=== PATIENT | male | born 1955 | race Caucasian/White ===

== ENCOUNTER → 2018-03-22 | Outpatient (CLI) | payer OTHER ==
[~2018-03-22] MED LIST: DIGO0.2518 PO; LISI40TA PO; MULT-506 PO; PROP80CA29 PO; WARF5TAB7 PO
[2018-03-22 10:44] LABS: BASO % 0.7 %; BASO ABS # 0.03 K/uL (0-0.2); EOS % 4.9 %; EOS ABS # 0.21 K/uL (0-0.5); HEMATOCRIT 44.7 % (42-52); HEMOGLOBIN 15.7 g/dL (14.0-18.0); IG# 0.01 K/uL (0.00-0.02); LYMPH % 22.9 %; LYMPH ABS # 0.99 K/uL (1.2-3.4); MEAN CELL VOLUME 93.3 fL (80-100); MEAN CORPUSCULAR HEMOGLOBIN 32.8 pg (25-34); MEAN CORPUSCULAR HGB CONC 35.1 g/dl (32-36); MEAN PLATELET VOLUME 12.2 fL (7.4-10.4); MONO % 8.8 %; MONO ABS # 0.38 K/uL (0.11-0.59); NEUT % 62.5 %; PLATELET COUNT 135 K/uL (130-400); RED CELL DISTRIBUTION WIDTH CV 13.2 % (11.5-14.5); RED CELL DISTRIBUTION WIDTH SD 45.2 fL (36.4-46.3); WHITE BLOOD COUNT 4.32 K/uL (4.8-10.8)
[2018-03-22 11:04] LABS: HEMOGLOBIN A1C 5.1 % (4.5-5.6)
[2018-03-22 14:25] LABS: ALBUMIN 3.8 gm/dl (3.4-5.0); ALT/SGPT 28 U/L (12-78); AST/SGOT 15 U/L (15-37); BLOOD UREA NITROGEN 23 mg/dl (7-18); CARBON DIOXIDE 26 mmol/L (21-32); CREATININE 1.04 mg/dl (0.60-1.40); GLUCOSE 107 mg/dl (70-99); POTASSIUM 4.7 mmol/L (3.5-5.1); SODIUM 136 mmol/L (136-145)
[2018-03-22 14:34] LABS: ALKALINE PHOSPHATASE 53 U/L (45-117); CHOLESTEROL 194 mg/dl (0-200); LDL CHOLESTEROL CALCULATED 116 mg/dl
== END | disposition home or self-care (01) ==
LOC: C.LABBC 09:11
PROVIDERS: ATTEND Nurse Practitioner Family
DX: Z13.220 Encounter for screening for lipoid disorders (principal); I48.91 Unspecified atrial fibrillation; I10 Essential (primary) hypertension; R73.9 Hyperglycemia, unspecified

== ENCOUNTER 2018-07-10 10:57 | Emergency (ER) | payer BC ==
[~2018-07-10] VITALS: Ht 188 cm; Wt 112.5 kg
[2018-07-10 11:08] VITALS: Ht 188 cm; Wt 112.5 kg
[2018-07-10] MEDS ORDERED: SODIUM CHLORIDE 0.9% 1000ML 1,000 ML IV STA (11:59)
[2018-07-10 12:23] VITALS: O2SAT 97
--- NOTE | 2018-07-10 12:26 | EMERGENCY ROOM VISIT NOTE ---
History First contact with patient: 11:51 Chief Complaint: URINARY SYMPTOMS Stated Complaint: BLOOD IN URINE, ABD PAIN Nursing Triage Summary: Pt. arrives with c/o having blood in his urine on and off for the past 4 days. History of Present Illness The patient is a 62 year old male who presents to the Emergency Room via private vehicle with complaints of "blood in urine, abdominal pain". The patient notes that he has been having blood in the urine off and on for the past 4 days. He states that this morning he urinated it was fine however now he is peeing bright red blood that is now preventing him from being able to urinate he notes. He states that he has no pain currently but feels as though he may be getting some discomfort in the bladder region secondary to it filling and not being able to void. He notes he is on Xarelto for A. fib. No recent trauma or injury. No smoking history. Review of Systems A complete 10-point Review of Systems was discussed with the patient, with pertinent positives and negatives listed in the History of Present Illness. All remaining Review of Systems questions can be considered negative unless otherwise specified. Past Medical/Surgical History A. fib Family History No pertinent Social History Smoking Status: Never Smoker Patient is employed and lives locally. Current/Historical Medications Scheduled Amlodipine (Norvasc), 5 MG PO DAILY Digoxin (Digoxin), 1 TAB PO DAILY Lisinopril (Prinivil), 40 MG PO BID Multivitamin (Multivitamin), 1 TAB PO DAILY Propranolol Hcl (Inderal La), 160 MG PO DAILY Rivaroxaban (Xarelto), 20 MG PO DAILY Sulfa/Trimethoprim (Bactrim Ds 800MG/160MG), 1 TAB PO BID Physical Exam Vital Signs Date Time Temp Pulse Resp B/P (MAP) Pulse Ox O2 Delivery O2 Flow Rate FiO2 07/10/18 17:15 61 18 199/106 98 07/10/18 17:06 59 16 98 07/10/18 17:01 199/106 07/10/18 16:51 60 12 98 07/10/18 16:46 196/99 07/10/18 16:36 60 13 98 07/10/18 16:31 196/100 07/10/18 16:27 61 16 98 07/10/18 16:16 180/91 07/10/18 16:12 64 21 98 07/10/18 16:10 189/89 8/13/18 16:03 197/96 07/10/18 15:56 190/109 07/10/18 15:27 63 98 07/10/18 15:26 65 18 205/109 98 07/10/18 15:26 205/109 07/10/18 14:51 191/99 07/10/18 14:51 65 18 191/99 98 Room Air 07/10/18 13:15 36.7 70 18 189/95 98 Room Air 07/10/18 12:25 66 07/10/18 12:23 97 Room Air 07/10/18 11:08 36.7 68 18 224/124 97 Room Air Physical Exam VITAL SIGNS - Vital signs and nursing notes were reviewed. Hypertensive. GENERAL -62-year-old male appearing his stated age who is in no acute distress. Communicates well with provider and answers questions appropriately. SKIN - Without rashes. No meningeal or petechial rash. HEAD - NC/AT. EYES - Sclera anicteric. EARS - No deformities of external structures noted on gross examination bilaterally. NOSE - Midline and without cyanosis. No epistaxis or purulent drainage noted. MOUTH/OROPHARYNX - Without perioral cyanosis. LUNGS - Chest wall symmetric without accessory muscle use, intercostals retractions, or central cyanosis. Normal vesicular breath sounds CTA B/L. No wheezes, rales, or rhonchi appreciated. CARDIAC - RRR with S1/S2. No murmur, rubs, or gallops appreciated. ABDOMEN - Abdominal contour normal without pulsations or visible masses. BS normoactive all four quadrants. No tenderness, palpable masses, hepatosplenomegaly, or ascites noted. EXTREMITIES - No clubbing or peripheral cyanosis. No pretibial edema present. +5 /5 strength noted in UE/LE bilaterally. NEUROLOGIC - Cranial nerves II through XII grossly intact. PSYCH - A&O, and cooperates fully with examiner. Pt is very pleasant and interacts well with examiner. Medical Decision & Procedures ER Provider Diagnostic Interpretation: ABD/PELVIS IV CONTRAST ONLY CLINICAL HISTORY: 62 years-old Male presenting with Hematuria, On xarelto. TECHNIQUE: Multidetector CT of the abdomen and pelvis was performed after the administration of intravenous contrast. IV contrast: 93 mL of Optiray 320. A dose lowering technique was used consistent with the principles of ALARA (as low as reasonably achievable). COMPARISON: None. CT DOSE (mGy.cm): The estimated cumulative dose is 981.81 mGy.cm. FINDINGS: Factory Hand topogram: Unremarkable. Lung bases: Minimal basilar opacities, likely atelectasis. Normal heart size. No pericardial or pleural effusion. Liver: Multilobular contour of the liver, nonspecific. No focal lesion. Patent hepatic vasculature. Biliary: No intrahepatic or extrahepatic biliary ductal dilatation. Normal gallbladder. Pancreas: Normal. Spleen: Normal. Adrenal glands: Normal. Kidneys and ureters: Heterogeneously enhancing mass arising from the interpolar region to lower pole of the left kidney measuring 7.7 x 7.3 x 8.1 cm. Expansion of the urinary collecting system, which is filled with enhancing material. The right ureter is mildly distended with hyperdense material along nearly its full length. The upper pole calyces of the left kidney are mildly dilated. There is no gross evidence of extension of tumor into the renal vein. Multiple prominent perinephric varices are evident. There is infiltration of left perinephric fat without gross evidence of nodular soft tissue extension through Gerota fascia. The right kidney is normal. No nephrolithiasis. Bladder: Allowing for under distention of the urinary bladder, there is still significant circumferential wall thickening. Perivesicular fat stranding evident. Pelvic organs: Prostate enlargement likely secondary to benign prostatic hyperplasia. Bowel: Normal appendix. No bowel obstruction. Peritoneal cavity: No free fluid or intraperitoneal gas. Lymph nodes: No enlarged lymph nodes in the abdomen or pelvis. Vasculature: Aorta and IVC patent and normal in caliber. Abdominal wall: Varicoceles suggested bilaterally. Musculoskeletal: Degenerative changes of the spine. IMPRESSION: 1. 8 cm mass arising from the left kidney highly suspicious for renal cell carcinoma. Urologic consultation is necessary for excision. The mass appears to extend into the urinary collecting system and results in upper pole obstruction. No lymphadenopathy or gross evidence of vascular invasion. However, the presence of bilateral varicoceles suggest some element of venous obstruction. 2. Circumferential bladder wall thickening. This is indeterminate and may be due to a benign cause such as chronic bladder outlet obstruction or cystitis. Correlate with urinalysis. Again urologic consultation recommended. The report will be called/faxed according to standard departmental protocol. Electronically signed by: Humberto Delgado M.D. 07/10/2018 2:24 PM Dictated Date/Time: 07/10/2018 2:08 PM Laboratory Results 07/10/18 12:20 Red Blood Count 4.44, Mean Corpuscular Volume 92.1, Mean Corpuscular Hemoglobin 30.9, Mean Corpuscular Hemoglobin Concent 33.5, Mean Platelet Volume 11.8, Neutrophils (%) (Auto) 74.8, Lymphocytes (%) (Auto) 14.6, Monocytes (%) (Auto) 6.0, Eosinophils (%) (Auto) 3.3, Basophils (%) (Auto) 0.8, Neutrophils # (Auto) 4.49, Lymphocytes # (Auto) 0.88, Monocytes # (Auto) 0.36, Eosinophils # (Auto) 0.20, Basophils # (Auto) 0.05 07/10/18 12:20 Test 07/10/18 12:05 07/10/18 12:20 Urine Color RED Urine Appearance TURBID (CLEAR) Urine pH 7.0 (4.5-7.5) Urine Specific Dorr 1.020 (1.000-1.030) Urine Protein 3+ (NEG) Urine Glucose (UA) TRACE (NEG) Urine Ketones TRACE (NEG) Urine Occult Blood 3+ (NEG) Urine Nitrite POS (NEG) Urine Bilirubin NEG (NEG) Urine Urobilinogen NEG (NEG) Urine Leukocyte Esterase TRACE (NEG) Urine RBC >30 /hpf (0-4) Urine WBC 1-5 /hpf (0-5) Urine Epithelial Cells 0-5 /lpf (0-5) Urine Bacteria NEG (NEG) White Blood Count 6.01 K/uL (4.8-10.8) Red Blood Count 4.44 M/uL (4.7-6.1) Hemoglobin 13.7 g/dL (14.0-18.0) Hematocrit 40.9 % (42-52) Mean Corpuscular Volume 92.1 fL (80-100) Mean Corpuscular Hemoglobin 30.9 pg (25-34) Mean Corpuscular Hemoglobin Concent 33.5 g/dl (32-36) Platelet Count 185 K/uL (130-400) Mean Platelet Volume 11.8 fL (7.4-10.4) Neutrophils (%) (Auto) 74.8 % Lymphocytes (%) (Auto) 14.6 % Monocytes (%) (Auto) 6.0 % Eosinophils (%) (Auto) 3.3 % Basophils (%) (Auto) 0.8 % Neutrophils # (Auto) 4.49 K/uL (1.4-6.5) Lymphocytes # (Auto) 0.88 K/uL (1.2-3.4) Monocytes # (Auto) 0.36 K/uL (0.11-0.59) Eosinophils # (Auto) 0.20 K/uL (0-0.5) Basophils # (Auto) 0.05 K/uL (0-0.2) RDW Standard Deviation 41.7 fL (36.4-46.3) RDW Coefficient of Variation 12.5 % (11.5-14.5) Immature Granulocyte % (Auto) 0.5 % Immature Granulocyte # (Auto) 0.03 K/uL (0.00-0.02) Prothrombin Time 13.1 SECONDS (9.0-12.0) Prothromb Time International Ratio 1.3 (0.9-1.1) Activated Partial Thromboplast Time 28.8 SECONDS (21.0-31.0) Partial Thromboplastin Ratio 1.1 Anion Gap 6.0 mmol/L (3-11) Est Creatinine Clear Calc Drug Dose 82.8 ml/min Estimated GFR () 71.6 Estimated GFR (Non- 61.8 BUN/Creatinine Ratio 16.2 (10-20) Calcium Level 9.4 mg/dl (8.5-10.1) Total Bilirubin 0.6 mg/dl (0.2-1) Aspartate Amino Transf (AST/SGOT) 17 U/L (15-37) Alanine Aminotransferase (ALT/SGPT) 26 U/L (12-78) Alkaline Phosphatase 69 U/L (45-117) Total Protein 7.8 gm/dl (6.4-8.2) Albumin 3.9 gm/dl (3.4-5.0) Globulin 3.9 gm/dl (2.5-4.0) Albumin/Globulin Ratio 1.0 (0.9-2) Medications Administered Medications (Trade) Dose Ordered Sig/Alexandra Route Start Time Stop Time Status Last Admin Dose Admin Sodium Chloride 1,000 ml @ 999 mls/hr Q1H1M STAT IV 07/10/18 11:59 07/10/18 12:59 DC 07/10/18 11:59 999 MLS/HR Ceftriaxone Sodium (Rocephin Inj) 1 gm NOW STAT IV 07/10/18 14:35 07/10/18 14:36 DC 07/10/18 14:46 1 GM Labetalol HCl (Normodyne IV) 10 mg NOW STAT IV 07/10/18 15:42 07/10/18 15:43 DC 07/10/18 16:11 10 MG Medical Decision Patient was seen and evaluated as above in room C5. Review was performed of nursing notes and vital signs. After obtaining a thorough history and physical examination the above work up was performed. He presents to us today with essentially painless hematuria. He does not smoke. Urinalysis reveals nitrites and there is concern for potential UTI. Given the patient's presentation I did want to further evaluate for other underlying etiologies. CT scan of the abdomen and pelvis were obtained. There is unfortunately an 8 cm mass in the left this was discussed with the patient, and subsequently the on -call urologist, Dr. Red. We discussed the case. She does not perform nephrectomies of which the patient will likely require, therefore recommended either follow-up at [facility] or with not in any urology with an individual who performs nephrectomies. I discussed this with the patient and he would prefer to stay here in [place] therefore I did consult the on- call [place] urologist. I spoke with Nieves Posada, nurse practitioner. We discussed the case. She was able to secure an appointment for the patient this coming Tuesday. Patient was informed upon this. He will follow-up with Dr. Yung on Tuesday at 9:10 AM. Patient notes he will certainly keep this appointment. I answered his questions. He was given fluids here. Initially he had a little trouble voiding but then with hydration he was able to have full voids. He notes no difficulty after being hydrated. Bladder scan does not show concern for retention. No leukocytosis or concerning anemia. I do not believe that he has emergent hemorrhaging. Unfortunately, the patient also does have hypertension presenting here to the emergency department. He has no chest pain or shortness of breath. No evidence of CVA. He has a history of hypertension and takes his medications as prescribed. His repeat values were systolically above 200. I believe that this should be treated. He was in agreement, and was given 10 mg of labetalol after discussing this with the attending physician. He was reevaluated and the level had dropped into the systolic 190s. I do not want to drop him too much as this certainly could be more of a chronic value. I did discuss this with the on-call wood cutter, Dr. Huerta. He was able to review the patient's blood pressures at the family doctor's office. He recommended adding amlodipine 5 mg daily. In talking with the attending physician we will also add Bactrim for treating potential UTI in this male. The patient was educated upon management, educated upon todays findings/results, educated upon symptoms in which to return, had questions answered prior to discharge, and was discharged home in good condition. Case was discussed with the attending physician. In the evaluation and treatment of this patient the following differential diagnoses were entertained: UTI, hemorrhagic cystitis, mass, urethritis, among others. Impression Primary Impression: Renal mass Additional Impression: Symptoms of urinary tract infection Departure Information Dispostion Home / Self-Care Condition GOOD Prescriptions Amlodipine (Norvasc) 5 Mg Tab 5 MG PO DAILY for 30 Days, #30 TAB Prov: Scott Ventura PA-C 07/10/18 Sulfa/Trimethoprim (Bactrim Ds 800MG/160MG) Tab 1 TAB PO BID for 5 Days, #10 TAB Prov: Scott Ventura PA-C 07/10/18 Referrals Mauricio Zapata III, CRNP (PCP) Jacky Yung M.D. Patient Instructions My [facility] Additional Instructions You have been treated in the Emergency Department for a Urinary Tract Infection (UTI) with a renal mass. Amlodipine 1 tablet which is 5 mg once daily. This to help lower your blood pressure. If you feel lightheaded on this likely or like you are going to pass out please discontinue and return immediately. Bactrim 1 tablet every 12 hours for 5 days. This is for the urinary tract infection. You have an upcoming appointment scheduled with Dr. Yung 07/12/18 at 0910. PLEASE KEEP THIS APPOINTMENT You have been prescribed Bactrim to be taken every 12 hours. This is an antibiotic. All antibiotics have the potential to cause diarrhea. Stop this medication and contact a medical provider if you were to develop any significant adverse side effects including: wheezing, shortness of breath, passing out, vomiting, or a diffuse rash. Always take antibiotics as directed and COMPLETE the ENTIRE course regardless of the improvement of your symptoms. Please keep your appointment with urology as scheduled.Please follow-up regarding elevated blood pressure. For pain control, you can use the following [id number] medicines (if >12 yo): - Regular strength (325mg/tab) Tylenol (acetaminophen) 2 tabs every 4-6 hours as needed. Do not exceed 12 tablets in a 24 hour period. Avoid taking more than 3 grams (3000 mg) of Tylenol per day. This includes any other sources of acetaminophen you may take on a regular basis. Please keep appointment with urology as scheduled Return to the emergency department if your symptoms worsen despite treatment course outlined above. Drink plenty of water and stay well hydrated. As with any trip to the Emergency Department, you should follow-up with your Primary Care Provider from today's visit. Return to the emergency department if your symptoms persist despite treatment plan outlined above or if the following symptoms occur: increased fevers, chills , low back pain, nausea/vomiting, or blood in your urine. Problem Qualifiers
[2018-07-10 12:27] LABS: BASO % 0.8 %; BASO ABS # 0.05 K/uL (0-0.2); EOS % 3.3 %; HEMATOCRIT 40.9 % (42-52); HEMOGLOBIN 13.7 g/dL (14.0-18.0); IG# 0.03 K/uL (0.00-0.02); LYMPH % 14.6 %; LYMPH ABS # 0.88 K/uL (1.2-3.4); MEAN CELL VOLUME 92.1 fL (80-100); MEAN CORPUSCULAR HEMOGLOBIN 30.9 pg (25-34); MEAN CORPUSCULAR HGB CONC 33.5 g/dl (32-36); MEAN PLATELET VOLUME 11.8 fL (7.4-10.4); MONO ABS # 0.36 K/uL (0.11-0.59); NEUT % 74.8 %; NEUT ABS # 4.49 K/uL (1.4-6.5); PLATELET COUNT 185 K/uL (130-400); RED CELL DISTRIBUTION WIDTH CV 12.5 % (11.5-14.5); RED CELL DISTRIBUTION WIDTH SD 41.7 fL (36.4-46.3); WHITE BLOOD COUNT 6.01 K/uL (4.8-10.8)
[2018-07-10 12:39] LABS: INR 1.3 (0.9-1.1); PTT PATIENT 28.8 SECONDS (21.0-31.0)
[2018-07-10 13:03] LABS: ALBUMIN 3.9 gm/dl (3.4-5.0); CALCIUM 9.4 mg/dl (8.5-10.1); CREATININE 1.25 mg/dl (0.60-1.40); POTASSIUM 4.4 mmol/L (3.5-5.1); TOTAL PROTEIN 7.8 gm/dl (6.4-8.2)
[2018-07-10 13:15] VITALS: TEMP 36.7
[2018-07-10] MEDS ORDERED: [UNRECOGNIZED DRUG - CODE] PO (13:19)
[2018-07-10] MEDS ORDERED: RIVA1TAB4 PO (13:22)
[2018-07-10] MEDS ORDERED: OPTIRAY 320 IV PRN (14:15)
--- NOTE | 2018-07-10 14:25 | DIAGNOSTIC IMAGING REPORT ---
ABD/PELVIS IV CONTRAST ONLY CLINICAL HISTORY: 62 years-old Male presenting with Hematuria, On xarelto. TECHNIQUE: Multidetector CT of the abdomen and pelvis was performed after the administration of intravenous contrast. IV contrast: 93 mL of Optiray 320. A dose lowering technique was used consistent with the principles of ALARA (as low as reasonably achievable). COMPARISON: None. CT DOSE (mGy.cm): The estimated cumulative dose is 981.81 mGy.cm. FINDINGS: Process Trainer topogram: Unremarkable. Lung bases: Minimal basilar opacities, likely atelectasis. Normal heart size. No pericardial or pleural effusion. Liver: Multilobular contour of the liver, nonspecific. No focal lesion. Patent hepatic vasculature. Biliary: No intrahepatic or extrahepatic biliary ductal dilatation. Normal gallbladder. Pancreas: Normal. Spleen: Normal. Adrenal glands: Normal. Kidneys and ureters: Heterogeneously enhancing mass arising from the interpolar region to lower pole of the left kidney measuring 7.7 x 7.3 x 8.1 cm. Expansion of the urinary collecting system, which is filled with enhancing material. The right ureter is mildly distended with hyperdense material along nearly its full length. The upper pole calyces of the left kidney are mildly dilated. There is no gross evidence of extension of tumor into the renal vein. Multiple prominent perinephric varices are evident. There is infiltration of left perinephric fat without gross evidence of nodular soft tissue extension through Gerota fascia. The right kidney is normal. No nephrolithiasis. Bladder: Allowing for under distention of the urinary bladder, there is still significant circumferential wall thickening. Perivesicular fat stranding evident. Pelvic organs: Prostate enlargement likely secondary to benign prostatic hyperplasia. Bowel: Normal appendix. No bowel obstruction. Peritoneal cavity: No free fluid or intraperitoneal gas. Lymph nodes: No enlarged lymph nodes in the abdomen or pelvis. Vasculature: Aorta and IVC patent and normal in caliber. Abdominal wall: Varicoceles suggested bilaterally. Musculoskeletal: Degenerative changes of the spine. IMPRESSION: 1. 8 cm mass arising from the left kidney highly suspicious for renal cell carcinoma. Urologic consultation is necessary for excision. The mass appears to extend into the urinary collecting system and results in upper pole obstruction. No lymphadenopathy or gross evidence of vascular invasion. However, the presence of bilateral varicoceles suggest some element of venous obstruction. 2. Circumferential bladder wall thickening. This is indeterminate and may be due to a benign cause such as chronic bladder outlet obstruction or cystitis. Correlate with urinalysis. Again urologic consultation recommended. The report will be called/faxed according to standard departmental protocol. Electronically signed by: Humberto Delgado M.D. 07/10/2018 2:24 PM Dictated Date/Time: 07/10/2018 2:08 PM
[2018-07-10] MEDS ORDERED: CEFTRIAXONE SOD INJ 1 GM ADDVIAL IV STA (14:35)
[2018-07-10] MEDS ORDERED: SULF800T23 PO (15:34)
[2018-07-10] MEDS ORDERED: LABETALOL HCL IV 5 MG/ML 20ML IV STA (15:42)
[2018-07-10] MEDS ORDERED: AMLO5TAB3 PO (17:02)
[2018-07-10 17:15] VITALS: BP 199/106; PULSE 61; O2SAT 98
== END 2018-07-10 17:15 | disposition home or self-care (01) ==
LOC: C.EDB 10:58 → C.EDC 17:15
DX: N28.89 Other specified disorders of kidney and ureter (principal); R39.9 Unspecified symptoms and signs involving the genitourinary system; I10 Essential (primary) hypertension; I48.2 Chronic atrial fibrillation; Z79.01 Long term (current) use of anticoagulants; Z79.899 Other long term (current) drug therapy

== ENCOUNTER 2025-07-24 11:52 | Inpatient (IN) ==
[2025-07-24] MEDS: SODIUM CHLORIDE 0.9% 1,000 ML IV SCH ×2 (12:33→18:39)
[2025-07-24] MEDS: ONDANSETRON INJ 2 MG/ML 2 ML VIAL IV STA (12:33)
[2025-07-24 12:39] LABS: Hematocrit (blood only) 30.9 % (42.0-52.0); Hemoglobin 10.7 g/dl (14.0-18.0); Immature Granulocytes # (auto) 0.07 K/uL (0.01-0.20); Immature Granulocytes % (auto) 0.8 %; Mean Corpuscular Hemoglobin 31.9 pg (25.0-34.0); Mean Corpuscular Volume 92.2 fL (80.0-100.0); Platelet Count 139 K/uL (130-400); RDW Standard Deviation 47.2 fL (36.4-46.3); Red Blood Count 3.35 M/uL (4.70-6.10); White Blood Count 8.43 K/ul (4.8-10.8)
[2025-07-24] MEDS ORDERED: SODIUM CHLORIDE 0.9% 100 ML IV PRN (12:42)
[2025-07-24] MEDS: SUCRALFATE 1 GM/10 ML UDC PO STA (12:53)
[2025-07-24] MEDS: FAMOTIDINE 20MG IV PUSH 20 MG/5 ML SYR IV STA (12:54)
[2025-07-24 12:57] LABS: Alanine Aminotransferase 11.0 U/L (7-52); Albumin Globulin Ratio 1.8 (0.9-2); Alkaline Phosphatase 33.0 U/L (34-104); Anion Gap 3.0 (3-11); Bilirubin,Total 0.6 mg/dl (0.2-1.0); Blood Urea Nitrogen 91.0 mg/dl (6-23); Calcium 11.7 mg/dl (8.6-10.3); Carbon Dioxide 23.0 mmol/L (21-32); Chloride 111.0 mmol/L (98-107); Creatinine Clr Calc Pharmacy 79.4 ml/min; Globulin 2.0 gm/dl (2.5-4.0); Glucose 137.0 mg/dl (70-99(Fasting)); Magnesium 1.9 mg/dl (1.7-2.4); Potassium 4.9 mmol/L (3.5-5.1); Sodium 137.0 mmol/L (136-145); Total Protein 5.6 gm/dl (6.0-8.3)
--- NOTE | 2025-07-24 13:05 | Emergency Department Note ---
Impression & Plan Acute upper gastrointestinal bleeding, Acute hypotension, Elevated troponin, Abnormal ECG ED Provider Note NAME: ARTURO BRUNSON AGE: 69 SEX: Male INFORMANT: Patient ED PROVIDER(S): Zain Lindsey MD CHIEF COMPLAINT: Illness PLAN: Disposition: Admitted Outpatient prescription management: none Referral: None MEDICAL DECISION MAKING: Patient presented because of illness. History was concerning for possible upper GI bleed. CBC revealed the patient's hemoglobin had dropped significantly, almost 4 g. Patient was hydrated. With resting and hydration patient's hypotension resolved and he was feeling better. He was treated with IV Pepcid, Protonix and oral Carafate. Patient's BUN to creatinine ratio was significantly elevated again supporting upper GI bleed. Patient also had a mildly elevated troponin. Patient does not have any or did not report any chest pain/atypical cardiac symptoms. Consulted with gastroenterology, Dr. Padilla who agreed with the treatment and need for admission. He will be available for consultation and suspect the patient will need endoscopy tomorrow. [facility] Case discussed and diagnostics were reviewed. Patient was admitted for further management. Care/management discussed with: loading manager, gastroenterology, hospitalist Level of care consideration(s): After review of the information above and other included data, I feel the patient requires escalation of care to admission Triage Nursing notes: reviewed and agree them. Vital Signs: reviewed and remarkable for mild hypotension Additional History obtained from: none Chronic Medical/Social Conditions affecting care: Anticoagulation Prior/ Outside/ External records reviewed: none Differential Diagnosis: peptic ulcer disease, variceal bleed, gastritis, Diverticulosis, AVM, coagulopathy, colitis, inflammatory bowel disease, malignancy, Zyenep-Hidalgo tear, esophagitis, epistaxis, fissure, hemorrhoids, as well as other pathologies. Diagnostics, independently interpreted by me: ECG: Twelve-lead ECG reveals a normal sinus rhythm at 89 bpm. Inferior and anterolateral T wave inversions. The degree of inversions are new when compared to August 02, 2024. Cardiac Monitoring: Cardiac monitoring ordered by me: The patient was placed on continuous cardiac monitoring and observed. It revealed a normal sinus rhythm at 86 beats per minute without ectopy or evidence of dysrhythmia. Medical decision rules: none Imaging studies: Deferred HPI: 69 year old Male arrives for evaluation of illness. Patient states that he did not have much of an appetite yesterday. He was feeling dizzy. He did not eat and was drinking water. About 3 AM he had some upset stomach and then became nauseated. He vomited what he described was brown in color. He also noted yesterday that he was having some irregularity in bowel movement and then his stools went from brown to a dark red. He is on Xarelto and took his last dose yesterday. Patient states he feels a little lightheaded. On arrival to the emergency department he was mildly hypotensive. Patient does have a history of peptic ulcer disease. Pt denies LOC, headache, fevers, chills, diaphoresis, visual changes, neck pain, chest pain, breathing difficulties, abdominal pain, back pain, urinary symptoms, numbness, focal weakness, lymphadenopathy, rash, or other complaints.. PAST MEDICAL HISTORY: See Below, A-fib, anticoagulated, PUD PAST SURGICAL HISTORY: See Below, SOCIAL HISTORY: See Below, non-smoker HOME MEDICATIONS: See Below ALLERGIES: See Below VITALS: See Below PHYSICAL EXAMINATION: GENERAL: Awake, alert, well-appearing, in no distress HENT: Normocephalic, atraumatic. Oropharynx unremarkable. EYES: Normal conjunctiva. Sclera non-icteric. NECK: Inspection normal. Non-tender. Supple. No nuchal rigidity. FROM. No masses. RESPIRATORY: Clear to auscultation. No wheezes. No rales. Normal respiratory effort. CARDIAC: Normal rate. Normal rhythm. No murmurs. No rubs. Extremities warm and well perfused. Pulses equal. No JVD. GI: Soft, non-distended. No tenderness to palpation. No rebound or guarding. No masses. RECTAL: Deferred. MUSCULOSKELETAL: Atraumatic. Chest examination reveals no tenderness. The back is symmetrical on inspection without obvious abnormality. There is no CVA tenderness to palpation. No joint edema. LOWER EXTREMITIES: Calves are equal size bilaterally and non-tender. Trace edema. No discoloration. NEURO: Normal sensorium. No sensory or motor deficits noted. SKIN: No rash or jaundice noted. PROCEDURES: none CRITICAL CARE: I have personally spent 30 minutes of critical care time in the direct management of this patient. This includes bedside care, interpretation of diagnostic studies, and testing, discussion with consultants, patient, and family members, and other required patient management activities. These minutes are in excess of all separately billable procedures. OBSERVATION NOTE: none Past Med/Surg History Problem List (Updated 07/24/25 @ 13:55 by Zain Lindsey MD) Abnormal ECG (Acute) Elevated troponin (Acute) Acute hypotension (Acute) Acute upper gastrointestinal bleeding (Acute) Hematuria, microscopic Status post lumbar spine surgery for decompression of spinal cord Left foot drop Lumbar disc herniation with radiculopathy Cecal polyp Personal history of colonic polyps Gastric ulcer Heme positive stool Iron deficiency anemia Knee effusion Right knee DJD Left knee DJD Hypertension Medical History History of kidney cancer (2017) left , sx intervention (no hx chemo radiation) History of herniated intervertebral disc History of bleeding peptic ulcer approx Jun or Jul 2024. No longer bleeding per pt upon GI follow up. Anemia Hypertension Hx of colonic polyps Hx of deep venous thrombosis 2004: Left calf- treated with AC LLE doppler 03/2024: "Peripheral nonocclusive thrombus within the distal left popliteal vein. This is age indeterminate but favors chronic nonocclusive DVT" > "will not require further treatment" per [facility] ER visit 04/26/24, Told "not an issue" per patient History of COVID-19 (2020) Symptoms resolved HTN (hypertension) Atrial fibrillation (1993) Taking Xarelto/beta primo, managed by PCP no hx cardioversion Iron deficiency anemia Iron infusion upcoming 08/29/24. Blood work to follow. CCP Monitoring anemia/iron deficiency. History of urinary tract infection Surgical History History of laminectomy (07/2024) Hx of colonoscopy with polypectomy EGD/colonoscopy 05/2024 History of esophagogastroduodenoscopy (EGD) EGD/colonoscopy 05/2024 Hx of removal of cyst (2021) Exc of pilar cyst scalp Dr. Curran in office Scalp, excision- Pilar cyst History of kidney removal (2017) Left, due to cancer H/O foot surgery Right History of tooth extraction two teeth under anesthesia History of tonsillectomy Family History Mother Cancer Father Cancer Brother Cancer Daughter Desmin myopathy Denies family history of Ovarian cancer Prostate cancer Myocardial infarction Breast cancer Colorectal cancer Social History (Updated 08/08/24 @ 11:11 by DILMA Deluna) Smoking Status: Never smoker Second Hand Exposure: No; Do You Dip or Chew Tobacco: No; Hx Alcohol Use: Yes Alcohol type: hard liquor Hx Substance Use: No Preferred Language: Italian Communication Ability: Effective Visual Impairment: No Limitations Hearing Ability: Normal Mascara Molder Required: No Beliefs That Will Affect Care: Jain Jain Beliefs: hinduism marital status: Single Current Living Situation: Significant Other current occupational status: employed current occupation: [employer] How many Children do You have: 2 Feels Safe at Home: Yes Childhood Exposure to Second-Hand Smoke: No Diet: low carbohydrate and regular caffeine: Yes during the past year weight has: decreased > 10 lbs Dental Care, Regularly: Yes Physical Activity Frequency: Daily Seatbelt Use: always Sunscreen Use: Yes Assistive Devices: None Allergies Allergies Allergy/AdvReac Type Severity Reaction Status Date / Time No Known Allergies Allergy Unknown Verified 12/17/24 11:21 Home Meds Home Medications Medication Instructions Recorded Confirmed multivitamin 0 cap PO QAM #0 tabs 04/05/13 07/24/25 ferrous sulfate 325 mg (65 mg 0 mg PO DAILY 07/13/24 07/24/25 iron) tablet (Feosol) omeprazole 40 mg capsule,delayed 0 mg PO QAM 07/26/24 07/24/25 release propranolol 160 mg capsule,24 160 mg PO QAM 07/26/24 07/24/25 hr,extended release rivaroxaban 20 mg tablet (Xarelto) 20 mg PO QAM 07/26/24 07/24/25 Previous Rx's Medication Instructions Recorded amlodipine 5 mg tablet 5 mg PO BID #180 tabs 07/17/24 digoxin 250 mcg (0.25 mg) tablet 250 mcg PO QAM #90 tabs 11/07/24 lisinopril 40 mg tablet 40 mg PO BID afib, hypertension 11/07/24 #180 tabs Results & Data (ED) Vital Signs Vital Signs - 24 hr 07/24/25 12:03 07/24/25 12:27 07/24/25 12:45 Temperature 36.4 C L Temperature Source Temporal Artery Scan Pulse Rate 97 H 60 86 Pulse Rate [Apical] Pulse Rate from SpO2 Sensor Pulse Rhythm Regular Regular Pulse Rhythm [Apical] Pulse Strength Normal Pulse Strength [Apical] Respiratory Rate 18 20 Respiratory Effort / Characteristics Non-Labored Spontaneous Respiratory Depth Normal Respiratory Pattern Blood Pressure 97/63 L Blood Pressure [Right Arm] Blood Pressure Mean 74 Blood Pressure Mean [Right Arm] Blood Pressure Position Sitting Blood Pressure Position [Right Arm] Pulse Oximetry 99 98 Oxygen Delivery Method Room Air Room Air Sepsis Recent Fever Within 48 Hours No Sepsis New/Unexplained Change in Mental Status N/A Sepsis Action Taken by Nursing No Action Required 07/24/25 13:00 07/24/25 13:30 07/24/25 13:33 Temperature Temperature Source Pulse Rate 76 76 Pulse Rate [Apical] Pulse Rate from SpO2 Sensor 77 76 Pulse Rhythm Pulse Rhythm [Apical] Pulse Strength Pulse Strength [Apical] Respiratory Rate 27 H 17 Respiratory Effort / Characteristics Respiratory Depth Respiratory Pattern Blood Pressure 126/58 L 112/61 Blood Pressure [Right Arm] Blood Pressure Mean 80 88 Blood Pressure Mean [Right Arm] Blood Pressure Position Blood Pressure Position [Right Arm] Pulse Oximetry 98 99 Oxygen Delivery Method Room Air Room Air Sepsis Recent Fever Within 48 Hours Sepsis New/Unexplained Change in Mental Status Sepsis Action Taken by Nursing 07/24/25 13:35 Temperature Temperature Source Pulse Rate Pulse Rate [Apical] 80 Pulse Rate from SpO2 Sensor Pulse Rhythm Pulse Rhythm [Apical] Regular Pulse Strength Pulse Strength [Apical] Normal Respiratory Rate 20 Respiratory Effort / Characteristics Non-Labored Spontaneous Respiratory Depth Normal Respiratory Pattern Regular Blood Pressure Blood Pressure [Right Arm] 112/61 Blood Pressure Mean Blood Pressure Mean [Right Arm] 78 Blood Pressure Position Blood Pressure Position [Right Arm] Lying Pulse Oximetry 98 Oxygen Delivery Method Room Air Sepsis Recent Fever Within 48 Hours Sepsis New/Unexplained Change in Mental Status Sepsis Action Taken by Nursing Laboratory Data 07/24/25 12:23 07/24/25 12:23 Lab Results 07/24/25 07/24/25 Range/Units 12:23 12:40 WBC 8.43 (4.8-10.8) K/ul RBC 3.35 L (4.70-6.10) M/uL Hgb 10.7 L (14.0-18.0) g/dl Hct 30.9 L (42.0-52.0) % MCV 92.2 (80.0-100.0) fL MCH 31.9 (25.0-34.0) pg MCHC 34.6 (32.0-36.0) g/dL RDW Std Deviation 47.2 H (36.4-46.3) fL RDW Coeff of Ben 14.2 (11.5-14.5) % Plt Count 139 (130-400) K/uL MPV 12.6 H (9.4-12.4) fL Immature Gran % (Auto) 0.8 % Neut % (Auto) 75.6 % Lymph % (Auto) 14.6 % [place] % (Auto) 8.8 % Eos % (Auto) 0.0 % Baso % (Auto) 0.2 % Neut # (Auto) 6.37 (1.40-6.50) K/uL Lymph # (Auto) 1.23 (1.20-3.40) K/uL [place] # (Auto) 0.74 H (0.11-0.59) K/uL Eos # (Auto) 0.00 (0.00-0.50) K/uL Baso # (Auto) 0.02 (0.00-0.20) K/uL Immature Gran # (Auto) 0.07 (0.01-0.20) K/uL PT 11.4 (9.0-12.0) Seconds INR 1.1 (0.9-1.1) APTT < 20 L (21-31) Seconds PTT Ratio 0.7 Sodium 137 (136-145) mmol/L Potassium 4.9 (3.5-5.1) mmol/L Chloride 111 H (98-107) mmol/L Carbon Dioxide 23 (21-32) mmol/L Anion Gap 3 (3-11) BUN 91 H (6-23) mg/dl Creatinine 1.14 (0.6-1.4) mg/dl Est Cr Clr Drug Dosing 79.4 ml/min eGFR 70.05 BUN/Creatinine Ratio 79.8 H (10-20) Glucose 137 H (70-99(Fasting)) mg/dl Calcium 11.7 H (8.6-10.3) mg/dl Magnesium 1.9 (1.7-2.4) mg/dl Total Bilirubin 0.6 (0.2-1.0) mg/dl AST 9 L (13-39) U/L ALT 11 (7-52) U/L Alkaline Phosphatase 33 L (34-104) U/L Troponin I High Sens 54.2 H* (0-20) pg/ml Total Protein 5.6 L (6.0-8.3) gm/dl Albumin 3.6 (3.4-5.0) gm/dl Globulin 2.0 L (2.5-4.0) gm/dl Albumin/Globulin Ratio 1.8 (0.9-2) Digoxin 0.7 L (0.8-2.0) ng/ml Blood Type B Positive Antibody Screen NEGATIVE Crossmatch See Detail Administered Medications Pantoprazole Sodium 40 mg/ (Dextrose) 100 mls @ 20 mls/hr IV Q5H [place] Stop: 08/23/25 12:59 Last Admin: 07/24/25 13:30 Dose: 8 mg/hr, 20 mls/hr Documented By: JILLIAN Discontinued Medications Sodium Chloride (Nss) 1,000 mls @ 999 mls/hr IV .Q1H1M [place] Stop: 07/24/25 13:30 Last Admin: 07/24/25 12:33 Dose: 999 mls/hr Documented By: MARYELLEN Pantoprazole Sodium 80 mg/ (Dextrose) 120 mls @ 480 mls/hr IV NOW ONE Stop: 07/24/25 12:56 Last Infusion: 07/24/25 13:29 Dose: Infused Documented By: Admin: 07/24/25 13:15 Dose: 480 mls/hr Documented By: JILLIAN Famotidine (Pepcid 20mg Iv Push) 20 mg in 5 mls @ 2.5 mls/min IV NOW STA Stop: 07/24/25 12:43 Last Admin: 07/24/25 12:54 Dose: 2.5 mls/min Documented By: JILLIAN Ondansetron HCl (Ondansetron Inj 2 Mg/Ml 2 Ml Vial) 4 mg IV ONE STA Stop: 07/24/25 12:24 Last Admin: 07/24/25 12:33 Dose: 4 mg Documented By: MARYELLEN Pantoprazole Sodium (Pantoprazole Bolus/Drip) 1 each IV NOW STA Stop: 07/24/25 12:43 Last Admin: 07/24/25 13:39 Dose: Not Given Documented By: MARYELLEN Sucralfate (Sucralfate 1 Gm/10 Ml Udc) 1 gm PO NOW STA Stop: 07/24/25 12:43 Last Admin: 07/24/25 12:53 Dose: 1 gm Documented By: [place] Discharge Plan Visit Data Chief Complaint: Illness Stated Complaint: VOMITING, DARK RED STOOL ED Provider: Zain Lindsey Discharge Problem: Acute upper gastrointestinal bleeding, Acute hypotension, Elevated troponin, Abnormal ECG Patient Disposition: Admitted As Inpatient Condition: Serious Forms Stand Alone Forms: [facility] [employer] Prescriptions Prescriptions: No Action multivitamin Capsule 0 cap PO QAM Qty: 0 Patient Comments: 07/24- otc unable to verify amlodipine 5 mg tablet 5 mg PO BID Qty: 180 3RF lisinopril 40 mg tablet 40 mg PO BID Qty: 180 3RF digoxin 250 mcg (0.25 mg) tablet 250 mcg PO QAM Qty: 90 3RF Rx Instructions: TAKE 1 TABLET BY MOUTH EVERY MORNING ferrous sulfate [Feosol] 325 mg (65 mg iron) tablet 0 mg PO DAILY Patient Comments: 07/24- otc/no fill history unable to verify propranolol 160 mg capsule,extended release 24 hr 160 mg PO QAM Rx Instructions: TAKE 1 CAPSULE BY MOUTH IN THE MORNING omeprazole 40 mg capsule,delayed release(DR/EC) 0 mg PO QAM Patient Comments: 07/24- otc/no fill history unable to verify Xarelto 20 mg tablet 20 mg PO QAM Hold Instructions: May restart 09/07/2024 Referrals Referrals: Mauricio Zapata III, CRNP [Primary Care Provider] -
[2025-07-24 13:07] LABS: INR 1.1 (0.9-1.1); Prothrombin Time 11.4 Seconds (9.0-12.0)
[2025-07-24 13:09] LABS: Partial Thromboplastin Time < 20 Seconds (21-31)
--- NOTE | 2025-07-24 13:20 | Gastrointestinal Consultation ---
Date of Consultation July 24, 2025 Assessment & Plan (1) Coffee ground emesis: -Continue IV PPI gtt on admission -EGD on 07/25/25 -Continue to monitor H/H -Xarelto on hold Supervising Physician Co-Signing Physician Notes I agree with the advanced practitioner's documentation above regarding review of case, evaluation, and assessment and plan unless outlined below. This was a shared visit in which I was present during all aspects of the case including evaluation, discussion of case, review of data and test results, interpretation of data and test results, complex medical decision making, coordination of care, communication with patient and family and direction of ancillary services. The patient presents with coffee-ground emesis in the setting of chronic anticoagulation. Differential diagnosis includes peptic ulcer disease, esophagitis, possible viral syndrome with vomiting and Zeynep-Hidalgo tear, less likely malignancy. In the absence of any significant liver disease, bleeding from portal hypertensive causes are unlikely. EGD 07/25/2025 will be performed for more definitive diagnosis. Further recommendations to follow thereafter. Patient may be transition to IV PPI twice daily. History of Present Illness Reason for Consultation: UGI bleed History of Present Illness Patient is a 69 yo male who presented to the ED due to concern for GI bleeding. He notes he noticed he wasn't as hungry as he was previously. He noticed his stool was dark yesterday. Then he developed coffee ground emesis. He notes he takes Xarelto for Afib. Last dose was on 07/23/25. He was alarmed by his symptoms and presented to the ED where he was found to be hypotensive, heme positive, and H/H was 10.7/30.9. He does use NSAIDs intermittently. Patient had an EGD in August 2024 that indicated erosive gastritis. He takes Omeprazole at home. He denies abdominal pain. He is not continuing to have overt bleeding. No history of liver disease. Allergies Allergy/AdvReac Type Severity Reaction Status Date / Time No Known Allergies Allergy Unknown Verified 12/17/24 11:21 Home Medications Medication Instructions Recorded Confirmed Type multivitamin 0 cap PO QAM #0 tabs 04/05/13 07/24/25 History ferrous sulfate 325 mg (65 mg 0 mg PO DAILY 07/13/24 07/24/25 History iron) tablet (Feosol) amlodipine 5 mg tablet 5 mg PO BID #180 tabs 07/17/24 07/24/25 Rx omeprazole 40 mg capsule,delayed 0 mg PO QAM 07/26/24 07/24/25 History release propranolol 160 mg capsule,24 160 mg PO QAM 07/26/24 07/24/25 History hr,extended release rivaroxaban 20 mg tablet (Xarelto) 20 mg PO QAM 07/26/24 07/24/25 History digoxin 250 mcg (0.25 mg) tablet 250 mcg PO QAM #90 tabs 11/07/24 07/24/25 Rx lisinopril 40 mg tablet 40 mg PO BID afib, hypertension 11/07/24 07/24/25 Rx #180 tabs Patient History Medical History History of kidney cancer (2017) left , sx intervention (no hx chemo radiation) History of herniated intervertebral disc History of bleeding peptic ulcer approx Jun or Jul 2024. No longer bleeding per pt upon GI follow up. Anemia Hypertension Hx of colonic polyps Hx of deep venous thrombosis 2003: Left calf- treated with AC LLE doppler 03/2024: "Peripheral nonocclusive thrombus within the distal left popliteal vein. This is age indeterminate but favors chronic nonocclusive DVT" > "will not require further treatment" per [facility] ER visit 04/26/24, Told "not an issue" per patient History of COVID-19 (2020) Symptoms resolved HTN (hypertension) Atrial fibrillation (1993) Taking Xarelto/beta primo, managed by PCP no hx cardioversion Iron deficiency anemia Iron infusion upcoming 08/29/24. Blood work to follow. CCP Monitoring anemia/iron deficiency. History of urinary tract infection Surgical History History of laminectomy (07/2024) Hx of colonoscopy with polypectomy EGD/colonoscopy 05/2024 History of esophagogastroduodenoscopy (EGD) EGD/colonoscopy 05/2024 Hx of removal of cyst (2021) Exc of pilar cyst scalp Dr. Curran in office Scalp, excision- Pilar cyst History of kidney removal (2017) Left, due to cancer H/O foot surgery Right History of tooth extraction two teeth under anesthesia History of tonsillectomy Family History Mother Cancer Father Cancer Brother Cancer Daughter Desmin myopathy Denies family history of Ovarian cancer Prostate cancer Myocardial infarction Breast cancer Colorectal cancer Social History Smoking Status: Never smoker Second Hand Exposure: No; Do You Dip or Chew Tobacco: No; Hx Alcohol Use: Yes Alcohol type: hard liquor Alcohol type Comment: none currently; drank in the past Hx Substance Use: No Preferred Language: Azeri Communication Ability: Effective Visual Impairment: No Limitations Hearing Ability: Normal Investment Analyst Required: No Beliefs That Will Affect Care: Jehovah'S Witness Jehovah'S Witness Beliefs: hindu marital status: Single Current Living Situation: Significant Other current occupational status: employed 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 [employer] How many Children do You have: 2 Feels Safe at Home: Yes Childhood Exposure to Second-Hand Smoke: No Diet: low carbohydrate and regular caffeine: Yes during the past year weight has: decreased > 10 lbs Dental Care, Regularly: Yes Physical Activity Frequency: Daily Seatbelt Use: always Sunscreen Use: Yes Assistive Devices: None Review of Systems Constitutional: + weakness, + anorexia and + increased a ppetite; no fever, no chills, no sweats, no body aches and no weight loss Ear, Nose, Mouth, Throat: no epistaxis, no dysphagia and no pain with swallowing Respiratory: no cough, no chest congestion, no dyspnea and no hemoptysis Cardiovascular: no chest pain, no dyspnea and no palpitations Gastrointestinal: + nausea, + vomiting, + coffee ground em esis, + hematemesis and + change in stools; no abdominal pain, no bloating, no early satiety, no pain with swallowing, no dysphagia, no cramping, no constipation, no diarrhea/loose stools, no fecal incontinence and no melena Genitourinary: no problem reported Musculoskeletal: no problem reported Integumentary: no rash Neurologic: no problem reported Endocrine: no problem reported Hematologic / Lymphatic: no easy bleeding, no easy bruising, no coagulopathy and no unexplained weight loss Physical Exam Constitutional: well developed Respiratory: normal respiratory effort Gastrointestinal (Abdomen): normal bowel sounds, soft, nontender, no hepatosplenomegaly Psychiatric: Orientation: alert and oriented x 3 Results & Data Vital Signs (Past 12 Hours) Vital Signs Temp Pulse Resp BP Pulse Ox O2 Del Method 07/24/25 12:45 86 07/24/25 12:27 60 20 98 Room Air 07/24/25 12:03 36.4 C L 97 H 18 97/63 L 99 Room Air PG Care Time/CCT Total # of Minutes Spent Total Time Spent with Patient: Total time spent is greater than 50% in coordination of care (as documented) at patient's floor/unit and/or counseling patient: [place] [address] IN/OBS CONSULT LVL 5,80M Patient Type New History Expanded Problem Focused Exam Detailed Medical Decision Making Moderate Complexity Diagnoses Coffee ground emesis K92.0
[2025-07-24] MEDS: PANTOprazole 40 MG in DEXTROSE 5% MINI-B 100 ML IV SCH ×2 (13:30→19:28)
[2025-07-24] MEDS: PANTOPRAZOLE BOLUS/DRIP IV STA (13:39)
--- NOTE | 2025-07-24 14:18 | History & Physical Report ---
Date of Service July 24, 2025 Assessment & Plan (1) Acute upper gastrointestinal bleeding: (2) Acute blood loss anemia: (3) History of gastric ulcer: (4) History of iron deficiency anemia: (5) Abnormal ECG: (6) Hypertension: (7) Hx of deep venous thrombosis: (8) History of kidney cancer: (9) PAF (paroxysmal atrial fibrillation): (10) Hypercalcemia: Plan Pleasant 69yo male with history of PAF on Xarelto, HTN, prior DVT of the left leg in the early , and previous EGDs showing gastric ulcers & gastritis presents from home with nearly 24 hours of feeling tired/lethargic, dizzy & lightheaded - followed by multiple episodes of vomiting last night (some coffee- ground in appearance) as well as melena stools early this am. Patient reports he was in his usual state of health until late yesterday afternoon when he was at work and a co-worker mentioned his color was off (pallor). He noticed yesterday afternoon he didn't have much appetite. By the time he got home last night from work he noted his abdomen was distended. Despite the above he has had no abdominal pain. #upper GI bleeding with resulting acute blood loss anemia - -prior h/o gastric ulcers & gastritis on EGD x 2 in 2023 -does not take PPI regularly, and he states he did not take PPI in 2023 after his gastritis/gastric ulcers were found? -does not use use NSAIDs on regular basis; denies etoh use -consent for PRBCs obtained; witnessed by ER nursing staff -fortunately he is hemodynamically stable and H/H are acceptable for now -[facility] for consideration of EGD -serial H/H's q6h -Tx PRBCs if hemoglobin <8, dizziness/lightheadedness persists, low BP, etc. -PPI bolus already given in ER; continue PPI drip -HOLD Xarelto #HTN - -hold amlodipine -hold lisinopril -hold propranolol #h/o PAF - -currently in NSR -can continue digoxin for now but given that he is in NSR uncertain how necessary this is -HOLD Xarelto -hold propranolol #hypercalcemia - -presenting level 11.7 -etiology uncertain -this is new; previous total calcium levels wnl -could be 2nd to dehydration in the setting of severe vomiting, etc but doubt given how high it is -give NS hydration -serial BMPs (repeat again tonight and in am) -check phos level -check intact PTH level -with kidney cancer history, if intact PTH level is normal, consider checking PTH-related peptide #h/o DVT - -hold Xarelto #h/o RCC s/p nephrectomy - -creatinine is stable today at 1.1 but with prerenal azotemia c/w upper GI bleeding #abnormal EKG with minimally elevated troponin - -abnormal EKG --> this is chronic, but I cannot see a recent echo -thus, obtain echo to assess LV wall motion, etc. -elevated troponin is likely 2nd to myocardial demand ischemia in setting of acute blood loss anemia/UGI bleeding History of Present Illness Chief Complaint: weakness, dizziness, melena stool, coffee-ground emesis Primary Care Provider: Mauricio Zapata, III, JAQUELIN Pleasant 69yo male with history of PAF on Xarelto, HTN, prior DVT of the left leg in the early , and previous EGDs showing gastric ulcers & gastritis presents from home with nearly 24 hours of feeling tired/lethargic, dizzy & lightheaded - followed by multiple episodes of vomiting last night as well as melena stools early this am. Patient reports he was in his usual state of health until late yesterday afternoon when he was at work and a co-worker mentioned his color was off (pallor). He noticed yesterday afternoon he didn't have much appetite. By the time he got home last night from work he noted his abdomen was distended. Despite the above he has had no abdominal pain. Sometime overnight he had 5-6 episodes of vomiting some of which were coffee-gr ound in appearance. His stomach bloating improved somewhat after the vomiting. Then, this am, he had multiple episodes of melena stool. In the midst of the above he felt that he could pass out if he wasn't careful. Patient denies any regular use of NSAIDs although he takes motrin about 1x/week for knee arthritis . He does not drink etoh. He does not use PPI or H2 primo regularly. He takes tums prn and pepto on rare occasion as well. Drinks about 2-3 cups coffee/day and drinks several "big gulps" from [employer] (diet soda). Despite 2 EGDs in 2023 showing gastric ulcers & gastritis he does not recall taking a PPI regularly in 2023. Of note - he did NOT take any Xarelto today. Allergies Allergy/AdvReac Type Severity Reaction Status Date / Time No Known Allergies Allergy Unknown Verified 12/17/24 11:21 Home Medications Medication Instructions Recorded Confirmed Type multivitamin 0 cap PO QAM #0 tabs 04/05/13 07/24/25 History ferrous sulfate 325 mg (65 mg 0 mg PO DAILY 07/13/24 07/24/25 History iron) tablet (Feosol) amlodipine 5 mg tablet 5 mg PO BID #180 tabs 07/17/24 07/24/25 Rx omeprazole 40 mg capsule,delayed 0 mg PO QAM 07/26/24 07/24/25 History release propranolol 160 mg capsule,24 160 mg PO QAM 07/26/24 07/24/25 History hr,extended release rivaroxaban 20 mg tablet (Xarelto) 20 mg PO QAM 07/26/24 07/24/25 History digoxin 250 mcg (0.25 mg) tablet 250 mcg PO QAM #90 tabs 11/07/24 07/24/25 Rx lisinopril 40 mg tablet 40 mg PO BID afib, hypertension 11/07/24 07/24/25 Rx #180 tabs Past Med/Surg History Problem List (Updated 07/25/25 @ 05:37 by Ramírez Lau MD) Hypercalcemia PAF (paroxysmal atrial fibrillation) History of iron deficiency anemia History of gastric ulcer Acute blood loss anemia Coffee ground emesis Abnormal ECG (Acute) Elevated troponin (Acute) Acute hypotension (Acute) Acute upper gastrointestinal bleeding (Acute) Hematuria, microscopic Status post lumbar spine surgery for decompression of spinal cord Left foot drop Lumbar disc herniation with radiculopathy Cecal polyp Personal history of colonic polyps Gastric ulcer Heme positive stool Iron deficiency anemia Knee effusion Right knee DJD Left knee DJD Hypertension Medical History History of kidney cancer (2017) left , sx intervention (no hx chemo radiation) History of herniated intervertebral disc History of bleeding peptic ulcer approx Aug or Jul 2024. No longer bleeding per pt upon GI follow up. Anemia Hypertension Hx of colonic polyps Hx of deep venous thrombosis 2003: Left calf- treated with AC LLE doppler 03/2024: "Peripheral nonocclusive thrombus within the distal left popliteal vein. This is age indeterminate but favors chronic nonocclusive DVT" > "will not require further treatment" per [facility] ER visit 04/26/24, Told "not an issue" per patient History of COVID-19 (2020) Symptoms resolved HTN (hypertension) Atrial fibrillation (1993) Taking Xarelto/beta primo, managed by PCP no hx cardioversion Iron deficiency anemia Iron infusion upcoming 08/29/24. Blood work to follow. CCP Monitoring anemia/iron deficiency. History of urinary tract infection Surgical History History of laminectomy (07/2024) Hx of colonoscopy with polypectomy EGD/colonoscopy 05/2024 History of esophagogastroduodenoscopy (EGD) EGD/colonoscopy 05/2024 Hx of removal of cyst (2021) Exc of pilar cyst scalp Dr. Curran in office Scalp, excision- Pilar cyst History of kidney removal (2017) Left, due to cancer H/O foot surgery Right History of tooth extraction two teeth under anesthesia History of tonsillectomy Family History Mother Cancer Father Cancer Brother Cancer Daughter Desmin myopathy Denies family history of Ovarian cancer Prostate cancer Myocardial infarction Breast cancer Colorectal cancer Social History (Updated 07/24/25 @ 15:32 by Ramírez Lau MD) Smoking Status: Never smoker Second Hand Exposure: No; Do You Dip or Chew Tobacco: No; Hx Alcohol Use: No Hx Substance Use: No Preferred Language: [place] Communication Ability: Effective Visual Impairment: No Limitations Hearing Ability: Normal 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 Beliefs That Will Affect Care: None marital status: Single Current Living Situation: Significant Other current occupational status: employed 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 [employer] How many Children do You have: 2 Other Information That Helps Us Care for You: No Feels Safe at Home: Yes Safety Concerns: Feels Safe At This Time Childhood Exposure to Second-Hand Smoke: No Diet: low carbohydrate and regular caffeine: Yes during the past year weight has: decreased > 10 lbs Dental Care, Regularly: Yes Physical Activity Frequency: Daily Seatbelt Use: always Sunscreen Use: Yes Assistive Devices: Glasses Assistive Devices Comment: Glasses for reading only Review of Systems Review of Systems: gen - feeling poorly x 24 hours w/ lack of appetite; no recent weight loss; no fevers or chills eyes - no ocular complaints HENT - no URI symptoms or dysphagia CV - no chest pain; chronic LE edema of left leg - wears compression stockings regularly pulm - no dyspnea, no cough GI - no abdominal pain despite the presenting vomiting/melena stools; no BRBPR - no LUTS musculo - chronic b/l knee pain endo - no diabetes neuro - no headache or motor weakness skin - no rash Physical Exam Physical Exam: gen - looks tired, weak, pale; NAD, pleasant eyes - PERRL HENT - mouth with dry MM, no lesions neck - no JVD, no lymph nodes, no goiter heart - RRR, s1 s2, no murmur lungs - CTA b/l abd - soft NT ND BS+; no HSM ext - 1-2+ edema LLE with compression stockings in place b/l; no edema right foot/leg; pulses b/l feet 2+ skin - no rash, generalized pallor neuro - strength 5/5 x 4 exts, DTRs 2+ b/l upper & lower exts psych - a/o x 3 Results & Data Results & Data Vital Signs (Past 12 Hours) Vital Signs Temp Pulse Pulse Resp BP BP Pulse Ox 07/24/25 13:35 80 20 112/61 98 07/24/25 13:33 76 17 99 07/24/25 13:30 112/61 07/24/25 13:00 76 27 H 126/58 L 98 07/24/25 12:45 86 07/24/25 12:27 60 20 98 07/24/25 12:03 36.4 C L 97 H 18 97/63 L 99 O2 Del Method 07/24/25 13:35 Room Air 07/24/25 13:33 Room Air 07/24/25 13:30 07/24/25 13:00 Room Air 07/24/25 12:45 07/24/25 12:27 Room Air 07/24/25 12:03 Room Air Laboratory Results Laboratory Results - last 24 hr 07/24/25 07/24/25 07/24/25 12:23 12:40 14:02 WBC 8.43 RBC 3.35 L Hgb 10.7 L Hct 30.9 L MCV 92.2 MCH 31.9 MCHC 34.6 RDW Std Deviation 47.2 H RDW Coeff of Ben 14.2 Plt Count 139 MPV 12.6 H Immature Gran % (Auto) 0.8 Neut % (Auto) 75.6 Lymph % (Auto) 14.6 [place] % (Auto) 8.8 Eos % (Auto) 0.0 Baso % (Auto) 0.2 Neut # (Auto) 6.37 Lymph # (Auto) 1.23 [place] # (Auto) 0.74 H Eos # (Auto) 0.00 Baso # (Auto) 0.02 Immature Gran # (Auto) 0.07 PT 11.4 INR 1.1 APTT < 20 L PTT Ratio 0.7 Sodium 137 Potassium 4.9 Chloride 111 H Carbon Dioxide 23 Anion Gap 3 BUN 91 H Creatinine 1.14 Est Cr Clr Drug Dosing 79.4 eGFR 70.05 BUN/Creatinine Ratio 79.8 H Glucose 137 H Calcium 11.7 H Magnesium 1.9 Iron 247 H TIBC 293 Transferrin 209 Transferrin % Sat 84 H Ferritin 41.1 Total Bilirubin 0.6 AST 9 L ALT 11 Alkaline Phosphatase 33 L Troponin I High Sens 54.2 H* 46.6 H Total Protein 5.6 L Albumin 3.6 Globulin 2.0 L Albumin/Globulin Ratio 1.8 Digoxin 0.7 L Blood Type B Positive Antibody Screen NEGATIVE Crossmatch See Detail Diagnostic Findings EKG- my reading: NSR, diffuse ST depressions but particularly all precordial leads (mostly chronic) Code Status & VTE Plan Code Status full code PG Care Time/CCT Total # of Minutes Spent Total Time Spent with Patient: Total time spent is greater than 50% in coordination of care (as documented) at patient's floor/unit and/or counseling patient: Coding Level of Care Code 06022 INT INP/OBS CARE 3/75MIN Diagnoses Acute upper gastrointestinal bleeding K92.2 Acute blood loss anemia D62 History of gastric ulcer Z87.11 History of iron deficiency anemia Z86.2 Abnormal ECG R94.31 Hypertension I10 Hx of deep venous thrombosis Z86.718 History of kidney cancer Z85.528 PAF (paroxysmal atrial fibrillation) I48.0 Hypercalcemia E83.52
[2025-07-24 14:54] LABS: Iron 247.0 mcg/dl (35-175); Total Iron Binding Cap Calc 293.0 mcg/dl (250-450); Transferrin 209.0 mg/dl (200-360); Transferrin (FE) Percent Satur 84.0 % (20-50)
[2025-07-24 15:14] LABS: Ferritin 41.1 ng/ml (8-388)
[2025-07-24] MEDS ORDERED: ONDANSETRON INJ 2 MG/ML 2 ML VIAL IV PRN (18:12)
[2025-07-24 19:23] LABS: Hematocrit (blood only) 27.7 % (42.0-52.0); Hemoglobin 9.5 g/dl (14.0-18.0)
[2025-07-24 19:38] LABS: Anion Gap 2.0 (3-11); Blood Urea Nitrogen 73.0 mg/dl (6-23); Calcium 11.3 mg/dl (8.6-10.3); Carbon Dioxide 25.0 mmol/L (21-32); Chloride 114.0 mmol/L (98-107); Creatinine Clr Calc Pharmacy 82.7 ml/min; Glucose 125.0 mg/dl (70-99(Fasting)); Potassium 4.7 mmol/L (3.5-5.1); Sodium 141.0 mmol/L (136-145)
--- NOTE | 2025-07-25 00:17 | XCELERA ---
[id number]
[2025-07-25 00:58] LABS: Hematocrit (blood only) 25.6 % (42.0-52.0); Hemoglobin 8.8 g/dl (14.0-18.0)
[2025-07-25 05:20] LABS: Hematocrit (blood only) 25.0 % (42.0-52.0); Hemoglobin 8.4 g/dl (14.0-18.0)
[2025-07-25 05:35] LABS: Anion Gap 1.0 (3-11); Blood Urea Nitrogen 55.0 mg/dl (6-23); Calcium 11.0 mg/dl (8.6-10.3); Carbon Dioxide 26.0 mmol/L (21-32); Chloride 117.0 mmol/L (98-107); Creatinine Clr Calc Pharmacy 82.5 ml/min; Glucose 135.0 mg/dl (70-99(Fasting)); Potassium 4.2 mmol/L (3.5-5.1); Sodium 144.0 mmol/L (136-145)
--- NOTE | 2025-07-25 09:04 | Hospitalist Progress Note ---
Date of Service July 25, 2025 Assessment & Plan (1) Acute upper gastrointestinal bleeding: (2) Acute blood loss anemia: (3) History of gastric ulcer: (4) History of iron deficiency anemia: (5) Abnormal ECG: (6) Hypertension: (7) Hx of deep venous thrombosis: (8) History of kidney cancer: (9) PAF (paroxysmal atrial fibrillation): (10) Hypercalcemia: Plan Pleasant 69yo male with history of PAF on Xarelto, HTN, prior DVT of the left leg in the early , and previous EGDs showing gastric ulcers & gastritis presents from home with nearly 24 hours of feeling tired/lethargic, dizzy & lightheaded - followed by multiple episodes of vomiting last night (some coffee- ground in appearance) as well as melena stools early this am. Patient reports he was in his usual state of health until late yesterday afternoon when he was at work and a co-worker mentioned his color was off (pallor). He noticed yesterday afternoon he didn't have much appetite. By the time he got home last night from work he noted his abdomen was distended. Despite the above he has had no abdominal pain. #upper GI bleeding with resulting acute blood loss anemia - -prior h/o gastric ulcers & gastritis on EGD x 2 in 2023 Does not take PPI regularly -does not use use NSAIDs on regular basis; denies etoh use GI consulted. Anticipate EGD today Trend H&H Transfuse for hemodynamic instability, or to threshold of 7.0 Continue PPI. Anticipate transitioning to twice daily push post EGD if doing well Xarelto held Iron 247/TIBC 293/transferrin 209/transferrin saturation 84%/ferritin 41.1. Transferrin saturation is high with a borderline low ferritin and borderline low transferrin. Has a history of JOSE and has received IV iron infusions in the past and takes oral iron intermittently. GI outpatient heme follow-up #HTN - - Motifene/lisinopril/propranolol resumed #h/o PAF - -currently in NSR - Home medications resumed -hold propranolol Xarelto held for GI bleeding, can resume this 07/26 if hemoglobin is stable #hypercalcemia - Hypercalcemia 11.7 on admit, downtrending with fluids. New ? Due to dehydration/vomiting. Has improved now 11.0, less than 1 mg/dL above upper limit of reference range PTH is elevated Continue IVF, trend. Improving and currently do not recommend calcitonin/bisphosphonate treatment. Labs consistent with primary hyperparathyroidism with vitamin D level less than 30. Hypercalcemia likely worsened with volume contraction on admission. Will increase vitamin D supplementation. 1, 25 level remains pending. Recommend having levels rechecked, outpatient BMP within 1 week. If calcium again rises greater than 11.3, or symptoms persist despite vitamin D repletion follow-up with endocrinology. #h/o DVT - -Resume anticoagulation 07/26 #h/o RCC s/p nephrectomy - -Creatinine stable Prerenal azotemia on admission due to GI bleeding #abnormal EKG with minimally elevated troponin - EKG: Inferior/anterior lateral T wave inversions noted. No ST segment changes. Echo with LVEF hyperdynamic, greater than 70%. No regional wall motion abnormalities. No significant valvular pathology. LVOT gradient less than 30 with normal PA/RA pressures. Admission and Anticipated Discharge Date Admission Date: July 24, 2025 Subjective Chadd is seen at the bedside post EGD. Reports he feels well. No lightheadedness or dizziness. No pain. Denies bleeding, no bloody bowel movements today He notes he does take an iron supplement, although inconsistently. Has needed Venofer in the past. He also takes vitamin D supplementation, although notes he takes this inconsistently. He takes 3 [id number] tablets a few times a week. No history of cancer, no cramps. No history of thyroid/parathyroid issues to his knowledge He has been dieting and has had some intentional weight loss, this is consistent and intentional with his diet and he notes he does eat a lot of protein and restricts carbohydrates as part of this which has been working well for him. No unexplained weight loss or weight loss to an unexpected degree Physical Exam Physical Exam: General: A&Ox3. NAD. Cooperative. HEENT: Atraumatic, normocephalic. Vision and hearing grossly intact. Pupils equal and reactive to light Pulm: CTAB A&P. -wheezes, -rales, -rhonchi. Symmetrical chest rise. No increase in work of breathing. No respiratory distress. Cardiac: RRR, -mrg. Radial pulses intact and symmetrical. Abdominal: Nontender, nondistended, soft. BS present. Extremities: Warm, dry. Moves all extremities equally Results & Data Results & Data Vital Signs (Past 12 Hours) Vital Signs Temp Pulse Pulse Resp BP Pulse Ox O2 Del Method 07/25/25 07:44 36.4 C L 73 18 113/67 94 Room Air 07/25/25 03:57 36.6 C 68 18 108/61 97 Room Air 07/24/25 22:35 36.6 C 87 18 100/61 95 Room Air 07/24/25 22:03 78 PG Care Time/CCT Total # of Minutes Spent Total Time Spent with Patient: Total time spent is greater than 50% in coordination of care (as documented) at patient's floor/unit and/or counseling patient: Coding Level of Care Code 13427 SUB INP/OBS CARE 3/50MIN Diagnoses Acute upper gastrointestinal bleeding K92.2 Acute blood loss anemia D62 History of gastric ulcer Z87.11 History of iron deficiency anemia Z86.2 Abnormal ECG R94.31 Hypertension I10 Hx of deep venous thrombosis Z86.718 History of kidney cancer Z85.528 PAF (paroxysmal atrial fibrillation) I48.0 Hypercalcemia E83.52
[2025-07-25 09:37] LABS: Hematocrit (blood only) 25.6 % (42.0-52.0); Hemoglobin 8.6 g/dl (14.0-18.0)
--- NOTE | 2025-07-25 10:01 | History & Physical Bridge Note ---
Date of Service July 25, 2025 History & Physical Bridge Note I have examined the patient, reviewed the History & Physical and in the interval since the performance of the History & Physical I have noted the following changes of clinical significance: no changes noted Patient's H/H 8.6/25.6. BUN/Cr 55/1.09. No melena, hematemesis, or coffee ground emesis overnight. He continues a PPI. Keep NPO and proceed with EGD today.
[2025-07-25] MEDS: DIGOXIN 0.25 MG TAB PO SCH (10:18)
--- NOTE | 2025-07-25 13:28 | Anesthesiology Consultation ---
Date of Service July 25, 2025 Assessment & Plan Chart Review Chart Review: Acceptable Risk for Surgery and Patient NOT seen in Pre Admission Testing Consults Requested none ASA ASA3 Proposed Anesthesia Anesthesia Type: MAC Risk / Benefits Reviewed With: PT / POA / Parent / Guardian, Accepts Plan and Informed Consent Obtained History Surgery Operation Date: 07/25/25 16:30 Proposed Procedures p Esophagogastroduodenoscopy Dr. Padilla - Puneet Padilla MD Height/Weight Height: 6 ft 2 in Weight: 101.6 kg Allergies Allergy/AdvReac Type Severity Reaction Status Date / Time No Known Allergies Allergy Unknown Verified 12/17/24 11:21 Medications Home Medications Medication Instructions Recorded Confirmed Last Taken multivitamin 0 cap PO QAM #0 tabs 04/05/13 07/24/25 08/10/24 10:00 ferrous sulfate 325 mg (65 mg 0 mg PO DAILY 07/13/24 07/24/25 09/03/24 iron) tablet (Feosol) amlodipine 5 mg tablet 5 mg PO BID #180 tabs 07/17/24 07/24/25 09/05/24 04:00 omeprazole 40 mg capsule,delayed 0 mg PO QAM 07/26/24 07/24/25 09/05/24 04:00 release propranolol 160 mg capsule,24 160 mg PO QAM 07/26/24 07/24/25 09/05/24 04:00 hr,extended release rivaroxaban 20 mg tablet (Xarelto) 20 mg PO QAM 07/26/24 07/24/25 09/01/24 digoxin 250 mcg (0.25 mg) tablet 250 mcg PO QAM #90 tabs 11/07/24 07/24/25 Unknown lisinopril 40 mg tablet 40 mg PO BID afib, hypertension 11/07/24 07/24/25 Unknown #180 tabs Active Medications Generic Name Dose Route Start Last Admin Trade Name Freq PRN Reason Stop Dose Admin Digoxin 0.25 mg 07/25/25 09:00 07/25/25 10:18 Digoxin 0.25 Mg Tab PO 08/24/25 08:59 0.25 mg QAM [place] Administration Pantoprazole Sodium 40 mg/ 100 mls @ 20 mls/hr 07/24/25 18:12 07/25/25 10:18 Dextrose IV 08/23/25 18:11 8 mg/hr Q5H [place] 20 mls/hr Administration 8 MG/HR Sodium Chloride 1,000 mls @ 125 mls/hr 07/24/25 18:12 07/25/25 10:18 Nss IV 07/27/25 18:11 125 mls/hr .Q8H [place] Administration NPO Date Last Intake of Fluids: 07/25/25 Time Last Intake of Fluids: 10:00 Last Intake of Fluids Comment: sip with meds Date Last Intake of Solids: 07/22/25 Time Last Intake of Solids: 10:00 Past Medical History Medical History History of kidney cancer (2017) left , sx intervention (no hx chemo radiation) History of herniated intervertebral disc History of bleeding peptic ulcer approx Jun or Jul 2024. No longer bleeding per pt upon GI follow up. Anemia Hypertension Hx of colonic polyps Hx of deep venous thrombosis 2004: Left calf- treated with AC LLE doppler 03/2024: "Peripheral nonocclusive thrombus within the distal left popliteal vein. This is age indeterminate but favors chronic nonocclusive DVT" > "will not require further treatment" per [facility] ER visit 04/26/24, Told "not an issue" per patient History of COVID-19 (2020) Symptoms resolved HTN (hypertension) Atrial fibrillation (1993) Taking Xarelto/beta primo, managed by PCP no hx cardioversion Iron deficiency anemia Iron infusion upcoming 08/29/24. Blood work to follow. CCP Monitoring anemia/iron deficiency. History of urinary tract infection Exercise / Class Metabolic Activity II 4-5 Yardwork/Stairs/Walk up hill Past Family History Family History Mother Cancer Father Cancer Brother Cancer Daughter Desmin myopathy Denies family history of Ovarian cancer Prostate cancer Myocardial infarction Breast cancer Colorectal cancer Past Surgical History Surgical History History of laminectomy (07/2024) Hx of colonoscopy with polypectomy EGD/colonoscopy 05/2024 History of esophagogastroduodenoscopy (EGD) EGD/colonoscopy 05/2024 Hx of removal of cyst (2021) Exc of pilar cyst scalp Dr. Curran in office Scalp, excision- Pilar cyst History of kidney removal (2018) Left, due to cancer H/O foot surgery Right History of tooth extraction two teeth under anesthesia History of tonsillectomy Past Anesthesia History No Hx of Anesthesia Complications and No Family Hx of Anesthesia Complications History of PONV No Hx of PONV and No Hx of Motion Sickness Social History Smoking Status: Never smoker Do You Dip or Chew Tobacco: No Hx Alcohol Use: No Alcohol type: hard liquor alcohol intake frequency: a few times a month Hx Substance Use: No substance use type: does not use Physical Exam Vital Signs Last Vital Signs Temp 36.8 C 07/25/25 13:00 Pulse 78 07/25/25 13:00 Resp 16 07/25/25 13:00 BP 134/68 07/25/25 13:00 Pulse Ox 97 07/25/25 13:00 O2 Del Method Room Air 07/25/25 13:00 ENMT Mouth: no dentition abnormality Thyromental Distance: > or= 3.5 Finger Breadths Mallampati Class: II Neck normal visual inspection Respiratory normal respiratory effort Auscultation: lungs clear to auscultation bilaterally Cardiovascular Rate/Rhythm: regular rate and regular rhythm Psychiatric Orientation: alert Testing Laboratory Results 07/25/25 09:14 07/25/25 04:56 PT 11.4 Seconds (9.0-12.0) 07/24/25 12:23 INR 1.1 (0.9-1.1) 07/24/25 12:23 APTT < 20 Seconds (21-31) L 07/24/25 12:23 Blood Type B Positive 07/24/25 12:40 Antibody Screen NEGATIVE 07/24/25 12:40
--- NOTE | 2025-07-25 14:59 | GI REPORT ---
[facility] Patient: ARTURO BRUNSON : 1955 Sex at : Male Age: 69 Years Procedure: Upper GI endoscopy Date: 07/25/2025 Attending Physician: Puneet Padilla MD Referring MD: Mauricio Zapata Indications: - Coffee-ground emesis - Suspected upper gastrointestinal bleeding - Melena Medications: - See the Anesthesia note for documentation of the administered medications Complications: - No immediate complications. Estimated Blood Loss: - Estimated blood loss: None. Procedure: - Prior to the procedure, a History and Physical was performed, and patient medications and allergies were reviewed. The patient's tolerance of previous anesthesia was also reviewed. The risks and benefits of the procedure and the sedation options and risks were discussed with the patient. All questions were answered, and informed consent was obtained. Prior Anticoagulants: The patient has taken Xarelto (rivaroxaban), last dose was 2 days prior to procedure. ASA Grade Assessment: III - A patient with severe systemic disease. After reviewing the risks and benefits, the patient was deemed in satisfactory condition to undergo the procedure. - The egd scope was introduced through the mouth and advanced to the third part of the duodenum. - The upper GI endoscopy was accomplished without difficulty. - The patient tolerated the procedure well. Findings: - The examined duodenum was normal. - One non-obstructing non-bleeding cratered gastric ulcer with a clean ulcer base (Hipolito Class III) was found in the prepyloric region of the stomach. The lesion was 1 mm in largest dimension. There is no evidence of perforation. Biopsies were obtained in the gastric antrum and in the gastric body with cold forceps. - The Z-line was regular and was found 40 cm from the incisors. - The cardia and gastric fundus were normal on retroflexion. Impression: - Normal examined duodenum. - Non-obstructing non-bleeding gastric ulcer with a clean ulcer base (Hipolito Class III). There is no evidence of perforation. - Biopsies were obtained in the gastric antrum and in the gastric body. - Z-line regular, 40 cm from the incisors. Recommendation: - Await pathology results. - Resume previous diet today. - Continue pantoprazole 40 mg twice daily for 1 month then reduce to once daily. - Avoid NSAIDs - May resume anticoagulation in 24 hours. - If hemodynamically stable and blood counts are normal then stable for hospital discharge from a GI perspective. Procedure Code(s): - 85755, Esophagogastroduodenoscopy, flexible, transoral; with biopsy, single or multiple Diagnosis Code(s): - K92.0, Hematemesis - K92.1, Melena (includes Hematochezia) - K25.9, Gastric ulcer, unspecified as acute or chronic, without hemorrhage or perforation CPT(R) - 202 copyright [employer]. All Rights Reserved. The CPT codes, CCI edits and ICD codes generated are intended as suggestions and were generated based on input data. These codes are preliminary and upon blow pit helper review may be revised to meet current compliance and payer requirements. The provider is responsible for the final determination of appropriate codes, and modifiers. Puneet Padilla MD This document has been electronically signed. Note Initiated:07/25/2025 Note Completed:07/25/2025 2:58 PM [email or web address]\Results\LIVE\[id number].[email or web address]
--- NOTE | 2025-07-25 15:18 | Anesthesiology Progress Note ---
Date of Service July 25, 2025 Anesthesia Post Procedure Vital Signs Vital Signs: Temp Pulse Pulse Pulse Resp BP BP 07/25/25 14:57 67 16 142/73 H 07/25/25 14:42 80 15 121/62 07/25/25 13:00 36.8 C 78 16 134/68 07/25/25 11:17 36.6 C 75 18 07/25/25 10:18 78 07/25/25 08:00 75 07/25/25 07:44 36.4 C L 73 18 07/25/25 03:57 36.6 C 68 18 07/24/25 22:35 36.6 C 87 18 07/24/25 22:03 78 07/24/25 18:15 36.8 C 79 18 07/24/25 18:14 07/24/25 17:00 76 18 07/24/25 15:51 85 15 07/24/25 15:20 70 19 98/62 L BP Pulse Ox O2 Del Method 07/25/25 14:57 100 Room Air 07/25/25 14:42 97 Room Air 07/25/25 13:00 97 Room Air 07/25/25 11:17 120/72 99 Room Air 07/25/25 10:18 07/25/25 08:00 07/25/25 07:44 113/67 94 Room Air 07/25/25 03:57 108/61 97 Room Air 07/24/25 22:35 100/61 95 Room Air 07/24/25 22:03 07/24/25 18:15 122/77 97 Room Air 07/24/25 18:14 Room Air 07/24/25 17:00 113/69 99 Room Air 07/24/25 15:51 94 07/24/25 15:20 97 Transfer of Care Handoff Completed per policy Notes Mental Status: alert / awake / arousable and participated in evaluation Patient Amnestic to Procedure: Yes Nausea / Vomiting: adequately controlled Pain: adequately controlled Airway Patency, RR, SpO2: stable & adequate BP & HR: stable & adequate Hydration State: stable & adequate Anesthetic Complications: no major complications apparent and Pt Satisfied with anesthetic care
[2025-07-25] MEDS: PROPOFOL IV EMULSION 10 MG/ML 20 ML VIAL IV ONE ×2 (15:27→15:28)
[2025-07-25] MEDS: LIDOCAINE 2% 2 ML VIAL/AMP(20MG/ML) INFIL ONE (15:27)
[2025-07-25] MEDS: PLASMA-LYTE A 1,000 ML IV SCH (17:11)
[2025-07-25 18:53] LABS: Hematocrit (blood only) 25.6 % (42.0-52.0); Hemoglobin 8.6 g/dl (14.0-18.0)
[2025-07-25] MEDS: POT PHOSPHATE MONOBASIC W/ SOD TAB PO SCH (20:09)
[2025-07-25] MEDS: PANTOprazole 40 MG/10 ML SYR IV SCH (20:10)
[2025-07-25] MEDS ORDERED: Nursing to Pharmacy Communication SCH (21:45)
--- NOTE | 2025-07-26 05:56 | Electrocardiogram Report ---
Test Reason : Blood Pressure : */* mmHG Vent. Rate : 89 BPM Atrial Rate : 89 BPM P-R Int : 166 ms QRS Dur : 78 ms QT Int : 300 ms P-R-T Axes : 16 13 209 degrees QTcB Int : 365 ms Normal sinus rhythm T wave abnormality, consider inferior ischemia T wave abnormality, consider anterior ischemia Abnormal ECG When compared with ECG of 02-Aug-2024 13:41, Vent. rate has increased by 32 bpm T wave inversion now evident in Inferior leads T wave inversion now evident in Lateral leads T wave inversion more evident in Anterior leads Confirmed by Bobo Celaya ([id number]) on 07/26/2025 5:55:41 AM Referred By: Confirmed By: Bobo Celaya
[2025-07-26 06:38] LABS: Hematocrit (blood only) 22.5 % (42.0-52.0); Hemoglobin 7.4 g/dl (14.0-18.0)
[2025-07-26 06:55] LABS: Hematocrit (blood only) 22.5 % (42.0-52.0); Hemoglobin 7.4 g/dl (14.0-18.0); Mean Corpuscular Hemoglobin 31.8 pg (25.0-34.0); Mean Corpuscular Volume 96.6 fL (80.0-100.0); Platelet Count 89 K/uL (130-400); RDW Standard Deviation 51.7 fL (36.4-46.3); Red Blood Count 2.33 M/uL (4.70-6.10); White Blood Count 3.36 K/ul (4.8-10.8)
[2025-07-26 07:13] LABS: Immature Granulocytes # (auto) 0.03 K/uL (0.01-0.20); Immature Granulocytes % (auto) 0.9 %; RBC Morphology Unremarkable
[2025-07-26 07:16] LABS: Anion Gap 0.0 (3-11); Blood Urea Nitrogen 22.0 mg/dl (6-23); Calcium 10.7 mg/dl (8.6-10.3); Carbon Dioxide 28.0 mmol/L (21-32); Chloride 114.0 mmol/L (98-107); Creatinine Clr Calc Pharmacy 91.7 ml/min; Glucose 107.0 mg/dl (70-99(Fasting)); Potassium 3.9 mmol/L (3.5-5.1); Sodium 142.0 mmol/L (136-145)
[2025-07-26] MEDS: PROPRANOLOL HCL LA 80 MG CAPCR PO SCH (08:25)
[2025-07-26] MEDS: POT PHOSPHATE MONOBASIC W/ SOD TAB PO SCH (08:26)
[2025-07-26 08:28] VITALS: RESP 18
[2025-07-26] MEDS ORDERED: PROPRANOLOL HCL LA 80 MG CAPCR PO SCH (09:00)
[2025-07-26] MEDS: LACTATED RINGER'S 1,000 ML IV SCH (10:44)
[2025-07-26 11:26] LABS: Hematocrit (blood only) 22.7 % (42.0-52.0); Hemoglobin 7.6 g/dl (14.0-18.0)
[2025-07-26 12:08] VITALS: TEMP 97.9; O2SAT 98
--- NOTE | 2025-07-26 12:10 | Discharge Summary ---
Discharge Summary Date of Service July 26, 2025 Principal Dx & Hospital Course #1 = Principal Diagnosis (1) Acute upper gastrointestinal bleeding: (2) Acute blood loss anemia: (3) History of gastric ulcer: (4) History of iron deficiency anemia: (5) Abnormal ECG: (6) Hypertension: (7) Hx of deep venous thrombosis: (8) History of kidney cancer: (9) PAF (paroxysmal atrial fibrillation): (10) Hypercalcemia: Plan Pleasant 69yo male with history of PAF on Xarelto, HTN, prior DVT of the left leg in the early , and previous EGDs showing gastric ulcers & gastritis presents from home with nearly 24 hours of feeling tired/lethargic, dizzy & lightheaded - followed by multiple episodes of vomiting last night (some coffee- ground in appearance) as well as melena stools early this am. Patient reports he was in his usual state of health until late yesterday afternoon when he was at work and a co-worker mentioned his color was off (pallor). He noticed yesterday afternoon he didn't have much appetite. By the time he got home last night from work he noted his abdomen was distended. Despite the above he has had no abdominal pain. Patient underwent EGD. Was found to have a cratered nonbleeding nonoozing ulcer. Was treated with PPI therapy. Hemoglobin was uptrending at time of discharge. No ongoing clinical bleeding. VSS with heart rate 64 at time of discharge. Anticoagulation was held for an additional 24 hours and then to be resumed 07/27/2025. Return precautions were discussed with patient to which she was agreeable. Additionally had hypercalcemia which greatly improved following fluids but which was associated with elevated PTH and low vitamin D levels. To do as outpatient: 1. Continue PPI twice daily therapy for upper GI bleed 2. Repeat CBC/BMP within 1 week by PCP 3. PCP follow-up within 1 week 4. Follow-up of primary hyperparathyroidism, hypercalcemia with hypovitaminosis D. Bisphosphonate/calcitonin therapy was not indicated at time of discharge. Endocrinology referral placed 5. Follow-up with hematology due to history of JOSE with elevated transferrin sat and serium iron, low ferritin Upper GI bleed - prior h/o gastric ulcers & gastritis on EGD x 2 in 2023 Does not take PPI regularly -does not use use NSAIDs on regular basis; denies etoh use GI consulted. S/p EGD 07/25/2025. Duodenum normal. 1 nonobstructing nonbleeding cratered gastric duodenal ulcer with clean base. No evidence of perforation. Biopsies were taken. Transferred back and resumed Protonix twice daily. Slight drop in hemoglobin overnight however on recheck was spontaneously uptrending. No melena/hematochezia per patient Heart rate 64, regular rate and rhythm at time of bedside assessment. Normotensive. A-fib anticoagulation prophylaxis was held for 1 additional day due to transient decrease in hemoglobin, and continued maintenance of sinus rhythm. Discharged to follow-up with PCP and GI Iron 247/TIBC 293/transferrin 209/transferrin saturation 84%/ferritin 41.1. Transferrin saturation is high with a borderline low ferritin and borderline low transferrin. Has a history of JOSE and has received IV iron infusions in the past and takes oral iron intermittently. High iron saturation but comparatively low ferritin? Nutritional with normal TIBC versus exogenous iron intake. Due to discrepancy between serum iron/transferrin saturation and ferritin hematology follow-up was ordered #HTN - - Motifene/lisinopril/propranolol resumed #h/o PAF - -NSR during admission - Home medications resumed -hold propranolol Xarelto held for GI bleeding, to be resumed 07/27/2025 #hypercalcemia - Hypercalcemia 11.7 on admit, downtrending with fluids. New Suspect multifactorial. Was with some dehydration and volume contraction coupled with hypovitaminosis D. Progressively improved and was less than 11 at time of discharge Labs consistent with primary hyperparathyroidism with vitamin D level less than 30. Hypercalcemia likely worsened with volume contraction on admission. increase vitamin D supplementation. 1, 25 level remains pending. Recommend having levels rechecked, outpatient BMP within 1 week. Did discuss with patient, will have repeat labs as an outpatient with his PCP. Endocrinology referral was placed, if labs normalized with vitamin D treatment and on recheck he will cancel his appointment. #h/o DVT - -Resume anticoagulation #h/o RCC s/p nephrectomy - -Creatinine stable Prerenal azotemia on admission due to GI bleeding #abnormal EKG with minimally elevated troponin - EKG: Inferior/anterior lateral T wave inversions noted. No ST segment changes. Echo with LVEF hyperdynamic, greater than 70%. No regional wall motion abnormalities. No significant valvular pathology. LVOT gradient less than 30 with normal PA/RA pressures. Admission HPI Per Admitting Provider Pleasant 69yo male with history of PAF on Xarelto, HTN, prior DVT of the left leg in the early , and previous EGDs showing gastric ulcers & gastritis presents from home with nearly 24 hours of feeling tired/lethargic, dizzy & lightheaded - followed by multiple episodes of vomiting last night as well as melena stools early this am. Patient reports he was in his usual state of health until late yesterday afternoon when he was at work and a co-worker mentioned his color was off (pallor). He noticed yesterday afternoon he didn't have much appetite. By the time he got home last night from work he noted his abdomen was distended. Despite the above he has had no abdominal pain. Sometime overnight he had 5-6 episodes of vomiting some of which were coffee- ground in appearance. His stomach bloating improved somewhat after the vomiting. Then, this am, he had multiple episodes of melena stool. In the midst of the above he felt that he could pass out if he wasn't careful. Patient denies any regular use of NSAIDs although he takes motrin about 1x/week for knee arthritis . He does not drink etoh. He does not use PPI or H2 primo regularly. He takes tums prn and pepto on rare occasion as well. Drinks about 2-3 cups coffee/day and drinks several "big gulps" from [employer] (diet soda). Despite 2 EGDs in 2023 showing gastric ulcers & gastritis he does not recall taking a PPI regularly in 2023. Of note - he did NOT take any Xarelto today. Discharge Exam General: A&Ox3. NAD. Cooperative. HEENT: Atraumatic, normocephalic. Vision and hearing grossly intact. Pulm: CTAB A&P. -wheezes, -rales, -rhonchi. Symmetrical chest rise. No increase in work of breathing. No respiratory distress. Cardiac: RRR, -mrg. Radial pulses intact and symmetrical. Abdominal: Nontender, nondistended, soft. BS present. Discharge Plan Discharge Items Patient Disposition: Home - Self-Care Reason For Visit: UPPER GI BLEEDING, ACUTE BLOOD LOSS ANEMIA Discharge Diagnosis: Upper GI bleed Condition on Discharge: Good Activity: Resume your previous activity Non-emergency contact: Primary Care Provider and Surgeon Call non-emergency contact if: you have any medication questions, your symptoms worsen and your pain is not controlled Follow-up/Referrals: Mauricio Zapata III, CRNP [Primary Care Provider] - Leobardo Tyson PA-C [Physician String Cutter] - Nati Knapp MD [Physician] - Diet: Regular Addtl Attending Provider Instructions: You are seen in the hospital for low blood levels due to an upper GI bleed, likely from a stomach ulcer. You underwent an endoscopy, the ulcer was visualized and was not actively bleed ing. You are recommended for antiacid treatment with Protonix twice daily. Please take pantoprazole 40 mg by mouth twice daily. Please avoid all NSAIDs including ibuprofen, naproxen, Aleve, Advil, and Motrin which can all contribute to and worsen stomach ulcers. Your blood levels were improving at time of discharge. There is a risk of recurrent bleeding from your ulcer. If you have any bloody or black bowel movements, lightheadedness/dizziness/racing heart rate, or other concerning symptoms please seek immediate reattention in the emergency department by calling 911. You may resume taking your Eliquis starting 07/27/2025. You did have elevated calcium levels during admission. These are greatly improved and were near normal at time of discharge following fluid treatment. Your parathyroid hormone levels which are related to this were elevated, and your vitamin D levels which are also related to this were low. A variant of your vitamin D level was pending and not available for review by time of discharge. Please follow-up with your primary care provider regarding these levels. A referral to endocrinology has been placed for you. You should have a repeat calcium level/BMP check in approximately 1 week. You vitamin D level during admission was 24.8. Please take vitamin D2 2000 mg by mouth once daily. This is available [id number] at the pharmacy. A hematology referral has been placed for follow-up of your iron deficiency anemia, and for follow-up of your iron panel. Your iron panel showed a very high transferrin saturation level and high serum iron; however your ferritin levels which are a typical marker of iron level were low. If you develop any new or worsening symptoms including fever, chills, sweats, chest pain, chest pressure, difficulty breathing, uncontrolled nausea/vomiting, rash, wheezing, passing out or nearly passing out, bleeding, black/bloody bowel movements, or other new or concerning symptoms please call your primary care physician , or call 911 for re-evaluation in the emergency department if you are very concerned. Pending Studies at Discharge: No Stand-Alone Forms: My [facility] [employer], Smoking Cessation Medications and DC Order Prescriptions: New ergocalciferol (vitamin D2) 50 mcg (2,000 unit) tablet 50 mcg PO DAILY 30 Days Qty: 1 0RF Rx Instructions: Available over the counter pantoprazole [Protonix] 40 mg tablet,delayed release (DR/EC) 40 mg PO BID 42 Days Qty: 84 0RF Continued multivitamin Capsule 0 cap PO QAM Qty: 0 Patient Comments: 07/24- otc unable to verify amlodipine 5 mg tablet 5 mg PO BID Qty: 180 3RF lisinopril 40 mg tablet 40 mg PO BID Qty: 180 3RF digoxin 250 mcg (0.25 mg) tablet 250 mcg PO QAM Qty: 90 3RF Rx Instructions: TAKE 1 TABLET BY MOUTH EVERY MORNING propranolol 160 mg capsule,extended release 24 hr 160 mg PO QAM Rx Instructions: TAKE 1 CAPSULE BY MOUTH IN THE MORNING Held ferrous sulfate [Feosol] 325 mg (65 mg iron) tablet 0 mg PO DAILY Hold Instructions: Resume on 07/31/25. Patient Comments: 07/24- otc/no fill history unable to verify Xarelto 20 mg tablet 20 mg PO QAM Hold Instructions: Resume on 07/27/25. Discontinued omeprazole 40 mg capsule,delayed release(DR/EC) 0 mg PO QAM Patient Comments: 07/24- otc/no fill history unable to verify Discharge Orders: Discharge Order (Routine); Ordered 07/26/25 Ordered By: Humberto Duncan Admission Data Admit Date/Time: 07/24/25 14:48 Attending Provider: Humberto Duncan Admit Provider: Ramírez Lau Primary Care Provider: Mauricio Zapata III Other Providers: Puneet Padilla Other Interventions: Discharge Summary Assessment (RN) Last Done: 07/25/25 15:12 Hospital Stay Data Consultations 07/24/25 18:12 Consult Gastroenterology Routine Procedures Performed Operation Date: 07/25/25 16:30 Actual Procedures p EGD Biopsy Cytology - Puneet Padilla MD Discharge Instructions Given to Patient (Per Discharging Provider) You are seen in the hospital for low blood levels due to an upper GI bleed, likely from a stomach ulcer. You underwent an endoscopy, the ulcer was visualized and was not actively bleeding. You are recommended for antiacid treatment with Protonix twice daily. Please take pantoprazole 40 mg by mouth twice daily. Please avoid all NSAIDs including ibuprofen, naproxen, Aleve, Advil, and Motrin which can all contribute to and worsen stomach ulcers. Your blood levels were improving at time of discharge. There is a risk of recurrent bleeding from your ulcer. If you have any bloody or black bowel movements, lightheadedness/dizziness/racing heart rate, or other concerning symptoms please seek immediate reattention in the emergency department by calling 911. You may resume taking your Eliquis starting 07/27/2025. You did have elevated calcium levels during admission. These are greatly improved and were near normal at time of discharge following fluid treatment. Your parathyroid hormone levels which are related to this were elevated, and your vitamin D levels which are also related to this were low. A variant of your vitamin D level was pending and not available for review by time of discharge. Please follow-up with your primary care provider regarding these levels. A referral to endocrinology has been placed for you. You should have a repeat calcium level/BMP check in approximately 1 week. You vitamin D level during admission was 24.8. Please take vitamin D2 2000 mg by mouth once daily. This is available [id number] at the pharmacy. A hematology referral has been placed for follow-up of your iron deficiency anemia, and for follow-up of your iron panel. Your iron panel showed a very high transferrin saturation level and high serum iron; however your ferritin levels which are a typical marker of iron level were low. If you develop any new or worsening symptoms including fever, chills, sweats, chest pain, chest pressure, difficulty breathing, uncontrolled nausea/vomiting, rash, wheezing, passing out or nearly passing out, bleeding, black/bloody bowel movements, or other new or concerning symptoms please call your primary care physician , or call 911 for re-evaluation in the emergency department if you are very concerned. Total Time Total Time Spent Total Time Spent (In Minutes): Time spend day of discharge 40 minutes including direct patient care, documentation, review of labs and images, and coordination of care. Coding Level of Care Code 33594 INP/OBS DISCH >30 MIN Diagnoses Acute upper gastrointestinal bleeding K92.2 Acute blood loss anemia D62 History of gastric ulcer Z87.11 History of iron deficiency anemia Z86.2 Abnormal ECG R94.31 Hypertension I10 Hx of deep venous thrombosis Z86.718 History of kidney cancer Z85.528 PAF (paroxysmal atrial fibrillation) I48.0 Hypercalcemia E83.52
[2025-07-26 12:43] VITALS: BP 130/75; PULSE 78
== END 2025-07-26 14:48 | disposition home or self-care (01) | DRG 378 ==
LOC: ED 11:52 → SUATTDRO 14:48 → 4W 14:48